=== PATIENT | female | born 2000 | race African-American/Black ===

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

== ENCOUNTER 2018-08-31 20:04 | Emergency (ER) | payer BC, MEDICAID ==
[~2018-08-31] VITALS: Ht 160 cm; Wt 93.0 kg
[~2018-08-31 20:04] MED LIST changes: +TRAMADOL HCL50 MG ORAL
[2018-08-31] MEDS ORDERED: NKM (20:15)
[2018-08-31 20:27] VITALS: BP 111/74
[2018-08-31] MEDS ORDERED: Tylenol #3 tab (300mg/30mg) ORAL ONE (20:45)
[2018-08-31] MEDS ORDERED: RANITIDINE HCL150 MG ORAL (20:58)
[2018-08-31] MEDS ORDERED: FIORICET1 EA ORAL (20:58)
[2018-08-31] MEDS ORDERED: ONDANSETRON ODT4 MG BC (20:58)
[2018-08-31 21:07] VITALS: BP 111/74
--- NOTE | 2018-09-03 06:58 | Emergency Room Report ---
History of Present Illness General Chief Complaint: Headache Source: Patient Present Illness HPI 18-year-old female presents ED for evaluation. States that last night she ate some food that made her sick. States that yesterday she vomited once and she vomited earlier today. Denies any abdominal pain. Denies any diarrhea. States that she has a headache because of the vomiting. Throbbing, 8 out of 10 , nonradiating. States she has migraines. Denies photophobia or blurry vision. Denies neck stiffness. Denies recent travel or recent antibiotic use. No other aggravating relieving factors. Denies any other associated symptoms Allergies: Coded Allergies: No Known Allergies (Unverified , 04/04/14) Patient History Past Medical History: HTN, asthma Past Surgical History: none Pertinent Family History: none Social History: Denies: smoking, alcohol use, drug use Last Menstrual Period: 07/2018 Now: No : 0 Para: 0 Immunizations: UTD Reviewed Nursing Documentation: PMH: Agreed; PSxH: Agreed Nursing Documentation-PMH Past Medical History: No History, Except For Hx Cardiac Problems: Yes - PAC's Hx Hypertension: Yes Hx Asthma: Yes Review of Systems All Other Systems: negative except mentioned in HPI Physical Exam Vital Signs Date Time Temp Pulse Resp B/P (MAP) Pulse Ox O2 Delivery O2 Flow Rate FiO2 08/31/18 20:12 98.4 103 16 111/74 97 Room Air Sp02 EP Interpretation: reviewed, normal General Appearance: no apparent distress, alert, GCS 15, non-toxic Head: normocephalic, atraumatic Eyes: bilateral eye normal inspection, bilateral eye PERRL ENT: hearing grossly normal, normal pharynx, no angioedema, normal voice Neck: full range of motion, supple/symm/no masses Respiratory: chest non-tender, lungs clear, normal breath sounds, speaking full sentences Cardiovascular #1: regular rate, rhythm, no edema Cardiovascular #2: 2+ carotid (R), 2+ carotid (L), 2+ radial (R), 2+ radial (L) , 2+ dorsalis pedis (R), 2+ dorsalis pedis (L) Gastrointestinal: normal bowel sounds, non tender, soft, non-distended, no guarding, no rebound Rectal: deferred Genitourinary: normal inspection, no CVA tenderness Musculoskeletal: back normal, gait/station normal, normal range of motion, non- tender Neurologic: alert, oriented x3, responsive, commodity trader III-XII nml as tested, motor strength/tone normal, sensory intact, speech normal Psychiatric: judgement/insight normal, memory normal, mood/affect normal, no suicidal/homicidal ideation Reflexes: 3+ bicep (R), 3+ bicep (L), 3+ tricep (R), 3+ tricep (L), 3+ knee (R) , 3+ knee (L) Skin: normal color, no rash, warm/dry, well hydrated Lymphatic: no adenopathy Medical Decision Making Diagnostic Impression: Primary Impression: Gastritis Qualified Codes: K29.00 - Acute gastritis without bleeding Additional Impression: Headache Qualified Codes: R51 - Headache ER Course Hospital Course 18 yo F presents to ED c/o nausea and vomiting, headache differential diagnosis: gastritis, SBO, cholecystits Clinical course Patient placed on stretcher. On office professional. After initial history, exam reveals female in no acute distress. Abdomen is soft. No guarding or rebound. Mucous membranes moist. There is no nuchal rigidity. Extraocular movements intact. Cranial nerves II through XII grossly intact. Discussed findings with patient. I do not believe patient requires IV hydration at this time. Given ODT Zofran and Tylenol and Reglan for her headache I asked patient if she has told her PMD about her headaches. She states "not yet". I asked her then if she has been officially diagnosed with migraines. Patient states "not yet". I explained to patient we cannot call this a migraine without an official diagnosis. Patient is to see her PMD and get neurology follow-up as outpatient On reassessment headache improved. Safe for discharge with close outpatient follow-up I feel this is a highly complex case requiring extensive working including EKG/ Rhythm strip, Xray/CT/US, Blood/urine lab work, repeat exams while in ED, and administration of strong opiates/narcotics for pain control, admission to hospital or close patient follow up. Diagnosis - gastritis, headache Stable and discharged to home with prescriptions for zofran, zantac, fioricet. Followup with PMD. Return to ED if symptoms recur or worsen Last Vital Signs Date Time Temp Pulse Resp B/P (MAP) Pulse Ox O2 Delivery O2 Flow Rate FiO2 08/31/18 21:07 98.4 87 16 111/74 97 Room Air Status: improved Disposition: HOME, SELF-CARE Condition: Stable Scripts Acetamin/Butalbital/Caffeine* (FIORICET*) 1 Ea Tab 1 TAB ORAL Q6H, #15 TAB 0 Refills Prov: Jaime Crabtree MD 08/31/18 Ondansetron Odt* (ZOFRAN ODT*) 4 Mg Tab.rapdis 4 MG BC EVERY 6 HOURS PRN for Nausea & Vomiting, #10 TAB 0 Refills Prov: Jaime Crabtree MD 08/31/18 Ranitidine Hcl* (ZANTAC*) 150 Mg Tablet 150 MG ORAL TWICE A DAY, #30 TAB Prov: Jaime Crabtree MD 08/31/18 Patient Instructions: Migraine Headache Jaime Crabtree MD Sep 03, 2018 06:58
== END 2018-08-31 21:09 | disposition home or self-care (01) ==
LOC: EMR 20:48
DX: K29.70 Gastritis, unspecified, without bleeding (principal); R51 Headache; I10 Essential (primary) hypertension; J45.909 Unspecified asthma, uncomplicated
CPT/HCPCS: 99282

== ENCOUNTER 2018-11-05 10:45 | Emergency (ER) | payer BC, MEDICAID ==
[~2018-11-05] VITALS: Ht 160 cm; Wt 89.8 kg
[~2018-11-05 10:45] MED LIST changes: +FIORICET1 EA ORAL; +NKM; +ONDANSETRON ODT4 MG BC; +RANITIDINE HCL150 MG ORAL
[2018-11-05 10:49] VITALS: BP 119/79
--- NOTE | 2018-11-05 10:49 | NUR ---
ED Nurse Note: PT. AAOX4. AMBULATORY. CAME IN TO ER DUE TO MIGRAINE SINCE MONDAY. DENIES N/V. NO S/S OF ACUTE DISTRESS NOTED AT THIS TIME
--- NOTE | 2018-11-05 11:13 | Emergency Room Report ---
History of Present Illness General Chief Complaint: Headache Source: Patient Present Illness HPI Patient presents with a headache that's been intermittent since Monday. She' s had trouble sleeping because of the headache. She's tried Tylenol which works for a short period of time but when it wears off she has the headache returned. It's frontal, throbbing, nonradiating. She took an Uber to come today. She rates the pain 10/10, frontal, pulsing. The patient states that she's been having headaches for the last 2 years. She' s never seen a private physician or neurologist to get this evaluated. She calls them migraines. She denies any aura for this episode. There is no nausea or vomiting. She denies any fevers, blood thinners, head trauma, numbness or weakness. She's not taking control. The patient states she is under more stress recently. This is been happening for the last 2 months. She's having difficulty sleeping. She denies suicidal ideation. HTN on atenolol. Asthma - no wheezes - on Albuterol Allergies: Coded Allergies: No Known Allergies (Unverified , 04/04/14) Patient History Past Medical History: see triage record Social History: Denies: smoking Social History Narrative security Now: No Reviewed Nursing Documentation: PMH: Agreed; PSxH: Agreed Nursing Documentation-PMH Hx Cardiac Problems: Yes - PAC's Hx Hypertension: Yes Hx Asthma: Yes Review of Systems All Other Systems: negative except mentioned in HPI Physical Exam Vital Signs Date Time Temp Pulse Resp B/P (MAP) Pulse Ox O2 Delivery O2 Flow Rate FiO2 11/05/18 10:49 98.2 88 16 119/79 94 Room Air Sp02 EP Interpretation: reviewed, normal General Appearance: well appearing, no apparent distress Head: normocephalic, atraumatic Eyes: bilateral eye normal inspection, bilateral eye PERRL, bilateral eye EOMI ENT: hearing grossly normal, normal voice, moist mucus membranes Neck: full range of motion, supple Respiratory: no respiratory distress, speaking full sentences Cardiovascular #1: regular rate, rhythm Cardiovascular #2: 2+ radial (R) Gastrointestinal: normal inspection, normal bowel sounds, non tender, overweight Musculoskeletal: back normal, gait/station normal, normal range of motion, no calf tenderness Neurologic: alert, oriented x3, ocular pathologist III-XII nml as tested, motor strength/tone normal, DTRs symmetric, sensory intact, cerebellar normal, normal gait, speech normal Psychiatric: mood/affect normal Skin: no rash Medical Decision Making Diagnostic Impression: Primary Impression: Cephalgia Qualified Codes: G44.209 - Tension-type headache, unspecified, not intractable Additional Impression: Stress ER Course Patient presents with headache without red flag symptoms or findings. Differential includes migraine, tension, stress amongst others. Blood pressure is well controlled. There is no infectious etiology apparent. No imaging or studies or blood work needs to be done. The patient does not want a shot. She' ll be given Tylenol and Motrin. The patient was told that she needs to follow-up and get evaluated by a physician and also I suggested and neurology consultation. Patient stable for outpatient observation and treatment Last Vital Signs Date Time Temp Pulse Resp B/P (MAP) Pulse Ox O2 Delivery O2 Flow Rate FiO2 11/05/18 11:22 98.6 78 16 122/68 96 Room Air Status: improved Disposition: HOME, SELF-CARE Condition: Improved Scripts Ibuprofen* (MOTRIN*) 600 Mg Tablet 600 MG ORAL Q6H PRN for For Pain, #20 TAB Prov: Isaac Coates MD 11/05/18 Acetamin/Butalbital/Caffeine* (FIORICET*) 1 Ea Tab 1 TAB ORAL Q6H PRN for headache, #10 TAB 0 Refills Prov: Isaac Coates MD 11/05/18 Isaac Coates MD Nov 05, 2018 11:13
[2018-11-05] MEDS ORDERED: IBUPROFEN600 MG ORAL (11:15)
[2018-11-05] MEDS ORDERED: FIORICET1 EA ORAL (11:15)
[2018-11-05 11:22] VITALS: BP 122/68
== END 2018-11-05 11:30 | disposition home or self-care (01) ==
LOC: EMR 11:10
DX: G44.209 Tension-type headache, unspecified, not intractable (principal); F43.9 Reaction to severe stress, unspecified; I10 Essential (primary) hypertension; J45.909 Unspecified asthma, uncomplicated; Z79.51 Long term (current) use of inhaled steroids
CPT/HCPCS: 99282

== ENCOUNTER 2019-06-10 17:32 | Emergency (ER) | payer BC, MEDICAID ==
[~2019-06-10] VITALS: Ht 162.6 cm; Wt 89.8 kg
[2019-06-10 18:15] VITALS: BP 125/80
--- NOTE | 2019-06-10 18:16 | Emergency Room Report ---
History of Present Illness General Chief Complaint: Earache Source: Patient Present Illness HPI 19 YO Female presents to the ED c/o 02/04 in severity left ear pain since yesterday. Denies ear discharge she reports recent upper respiratory infection. Patient is requesting testing as she states she recently had unprotected intercourse and she is not on control. She denies nausea , vomiting, fevers, chills, neck pain/stiffness, swollen tender lymph nodes, abdominal pain or vaginal discharge. Patient denies suspicion of STI. She denies cough, CP, SOB, dizziness, ringing in the ears or changes to her hearing ability. Allergies: Coded Allergies: No Known Allergies (Unverified , 04/04/14) Patient History Past Medical History: see triage record Past Surgical History: none Pertinent Family History: none Last Menstrual Period: unable to remember Now: No Reviewed Nursing Documentation: PMH: Agreed; PSxH: Agreed Nursing Documentation-PMH Past Medical History: No History, Except For Hx Cardiac Problems: Yes - PAC's Hx Hypertension: Yes Hx Asthma: Yes Review of Systems All Other Systems: negative except mentioned in HPI Physical Exam Vital Signs Date Time Temp Pulse Resp B/P (MAP) Pulse Ox O2 Delivery O2 Flow Rate FiO2 06/10/19 17:36 98.2 93 17 125/80 (95) 97 Room Air Sp02 EP Interpretation: reviewed, normal General Appearance: no apparent distress, alert, GCS 15, non-toxic Head: normocephalic, atraumatic Eyes: bilateral eye normal inspection, bilateral eye PERRL ENT: hearing grossly normal, normal pharynx, normal voice, nasal congestion, other - Left ear canal is macerated, some external ear tenderness to palpation, creamy white d/c noted in the right ear canal. the TM is WNL. Neck: full range of motion, no meningismus Respiratory: lungs clear, normal breath sounds, speaking full sentences Cardiovascular #1: regular rate, rhythm Musculoskeletal: gait/station normal, normal range of motion, non-tender Neurologic: alert, oriented x3, responsive, motor strength/tone normal, sensory intact, speech normal, grossly normal Psychiatric: judgement/insight normal Skin: no rash Lymphatic: no adenopathy Medical Decision Making PA Attestation Dr. Gongora Is my supervising Physician whom patient management has been discussed with. Diagnostic Impression: Primary Impression: Otitis externa of left ear Qualified Codes: H60.502 - Unspecified acute noninfective otitis externa, left ear ER Course 19 YO Female presents to the ED c/o 02/04 in severity left ear pain since yesterday. Denies ear discharge she reports recent upper respiratory infection. Patient is requesting testing as she states she recently had unprotected intercourse and she is not on control. She denies nausea , vomiting, fevers, chills, neck pain/stiffness, swollen tender lymph nodes, abdominal pain or vaginal discharge. Patient denies suspicion of STI. She denies cough, CP, SOB, dizziness, ringing in the ears or changes to her hearing ability. Ddx considered but are not limited to OM, OE, mastoiditis, TM perforation, FB, shingles just to name a few. Vital signs: are WNL, pt. is afebrile H&PE are most consistent with otitis Externa ORDERS: - Urine Hcg: Negative -OTOSCOPY: Left ear canal is macerated, some external ear tenderness to palpation, creamy white d/c noted in the right ear canal. the TM is WNL. ED INTERVENTIONS: None required at this time. DISCHARGE: At this time pt. is stable for d/c to home. With PO ABX. Will provide printed patient care instructions, and any necessary prescriptions. Care plan and follow up instructions have been discussed with the patient prior to discharge. Labs Test 06/10/19 17:45 Urine HCG, Qualitative Negative (NEGATIVE) Last Vital Signs Date Time Temp Pulse Resp B/P (MAP) Pulse Ox O2 Delivery O2 Flow Rate FiO2 06/10/19 17:36 98.2 93 17 125/80 (95) 97 Room Air Disposition: HOME, SELF-CARE Condition: Stable Scripts Ciprofloxacin Hcl/Dexameth (CIPRODEX OTIC SUSPENSION) 7.5 Ml Drops.susp 4 DROP LEFT EAR QID, #7.5 ML Prov: Bettina Rowan 06/10/19 Patient Instructions: Otitis Externa, [id number] Additional Instructions: Take medications as directed. Follow up with a Primary Care Provider in 3-5 days, even if your symptoms have resolved. --Please review list of primary care clinics, if you do not already have a primary care provider Return sooner to ED if new symptoms occur, or current symptoms become worse. - Please note that this Emergency Department Report was dictated using Fromographymachine try out setter technology software, occasionally this can lead to erroneous entry secondary to interpretation by the dictation equipment. Bettina Rowan Jun 10, 2019 18:16
[2019-06-10] MEDS ORDERED: CIPRODEX OTIC7.5 M1 LEFT EAR (18:18)
--- NOTE | 2019-06-10 18:18 | NUR ---
ED Nurse Note:urine sent to labs
--- NOTE | 2019-06-10 18:20 | NUR ---
ER DISCHARGE NOTE: Patient is cleared to be discharged per ERMD, pt is aox4, on room air, with stable vital signs. pt was given dc and prescription instructions, pt was able to verbalize understanding, pt is able to ambulate with steady gait. pt took all belongings.
[2019-06-10 18:29] VITALS: BP 125/80
== END 2019-06-10 18:36 | disposition home or self-care (01) ==
LOC: EMR 17:59
DX: H60.502 Unspecified acute noninfective otitis externa, left ear (principal); I10 Essential (primary) hypertension; J45.909 Unspecified asthma, uncomplicated; Z32.02 Encounter for pregnancy test, result negative
CPT/HCPCS: 81025; 99282

== ENCOUNTER 2020-07-06 05:27 | Emergency (ER) | payer BC, MEDICAID ==
[~2020-07-06] VITALS: Ht 160 cm; Wt 86.2 kg
[~2020-07-06 05:27] MED LIST changes: +CIPRODEX OTIC7.5 M1 LEFT EAR
--- NOTE | 2020-07-06 05:40 | NUR ---
ED Nurse Note: Recieved pt walk in from home eith c/o "I cant get my contacts out", pt is new contact lens wearer, brought on internet and never shown proper insertion, pt states its irritating, denies pain or any other s/s. or complaints. no visual changes or s/s of infection.
--- NOTE | 2020-07-06 05:50 | Emergency Room Report ---
History of Present Illness General Chief Complaint: Eye Problems Source: Patient Present Illness HPI Is a 20-year-old female with no past medical history. She presents with chief complaint of unable to get her contacts out. She just had new daily wear contacts place less than 24 hours ago. When she got home she could not get them out. She has long nails. Now is irritated. No fever chills but no nausea no vomiting. No drainage. No redness. Nothing made it better. Nothing made it worse. Allergies: Coded Allergies: No Known Allergies (Unverified , 04/04/14) COVID-19 Screening Contact w/high risk pt: No Experienced COVID-19 symptoms?: No COVID-19 Testing performed [employer]IC: No Patient History Past Medical History: see triage record, old chart reviewed Past Surgical History: none Pertinent Family History: none Social History: Denies: smoking Last Menstrual Period: 05/2020 Now: No Immunizations: other Reviewed Nursing Documentation: PMH: Agreed; PSxH: Agreed Nursing Documentation-PMH Hx Cardiac Problems: Yes - PAC's Hx Hypertension: Yes Hx Asthma: Yes Review of Systems Eye: Denies: eye pain, blurred vision ENT: Denies: ear pain, nose congestion, throat swelling Respiratory: Denies: cough, shortness of breath Cardiovascular: Denies: chest pain, palpitations Gastrointestinal: Denies: abdominal pain, diarrhea, nausea, vomiting Musculoskeletal: Denies: back pain, joint pain Skin: Denies: rash Neurological: Denies: headache, numbness Endocrine: Denies: increased thirst, increased urine Hematologic/Lymphatic: Denies: easy bruising All Other Systems: negative except mentioned in HPI Physical Exam Vital Signs Date Time Temp Pulse Resp B/P (MAP) Pulse Ox O2 Delivery O2 Flow Rate FiO2 07/06/20 05:30 98.4 78 16 102/54 (70) 98 Room Air Vitals normal Sp02 EP Interpretation: reviewed, normal General Appearance: well appearing, no apparent distress, alert Head: normocephalic, atraumatic Eyes: bilateral eye PERRL, bilateral eye EOMI, bilateral eye other - Bilateral contacts intact. No redness or trauma. ENT: hearing grossly normal, normal pharynx Neck: full range of motion, supple, no meningismus Respiratory: chest non-tender, lungs clear, normal breath sounds Cardiovascular #1: regular rate, rhythm, no murmur Gastrointestinal: normal bowel sounds, non tender, no mass, no organomegaly, no bruit, non-distended Musculoskeletal: back normal, normal range of motion, gait/station normal Psychiatric: mood/affect normal Procedures Additional Procedure Procedure Narrative Procedure: Foreign body removal Indication: Foreign body (contact lens) bilateral eyes. Description: I put a couple drops of procaine in each eye. Using my finger I remove the contact lens without any problem. No trauma. Patient tolerated surgery without any problem. Medical Decision Making Diagnostic Impression: Primary Impression: Contact lens stuck ER Course This patient presents with contact lenses stuck in her eyes. No corneal abrasion or ulceration. No infection. Last Vital Signs Date Time Temp Pulse Resp B/P (MAP) Pulse Ox O2 Delivery O2 Flow Rate FiO2 07/06/20 05:30 98.4 78 16 102/54 (70) 98 Room Air Status: improved Disposition: HOME, SELF-CARE Condition: Stable Additional Instructions: Wear your glasses. Follow-up with your doctor as needed. Return if worse. Emre Diane MD Jul 06, 2020 05:50
[2020-07-06 06:00] VITALS: BP 102/54
== END 2020-07-06 06:00 | disposition home or self-care (01) ==
LOC: EMR 05:49
DX: T15.92XA Foreign body on external eye, part unspecified, left eye, initial encounter (principal); T15.91XA Foreign body on external eye, part unspecified, right eye, initial encounter; I10 Essential (primary) hypertension; J45.909 Unspecified asthma, uncomplicated; X58.XXXA Exposure to other specified factors, initial encounter
CPT/HCPCS: 99282

== ENCOUNTER 2020-07-27 16:27 | Emergency (ER) | payer BC, MEDICAID ==
[~2020-07-27] VITALS: Ht 160 cm; Wt 89.8 kg
--- NOTE | 2020-07-27 16:39 | NUR ---
ED Nurse Note: pt presents to ED c/o MORALES onset this AM. pt states that she has had this happen in the past and usually takes BC powder for it but has not today. she states that light makes the pain worse, describes the pain as "throbbing," also c/o mild dizziness
[2020-07-27 16:45] VITALS: BP 124/80
[2020-07-27] MEDS ORDERED: TYLENOL EXTRA500 MG ORAL (16:57)
--- NOTE | 2020-07-27 16:57 | Emergency Room Report ---
History of Present Illness General Chief Complaint: Headache Present Illness HPI 20-year-old female with no notable past medical history here complaining of right-sided frontal headache that started this morning after she excellently hit her head into the wall next to her as she was waking up. Patient denies any fall or injury, denies loss of consciousness, denies nausea or vomiting, blurry vision, dizziness. Reports that she did not take any pain medication as she did not know whether she should or not before coming to the emergency room. Patient has steady gait and denies any abdominal symptoms. Denies any alcohol intake or drug use prior to the head injury. Patient ports that she had not fully gotten off of bed that she accidentally bumped her right side of head trouble next to her. No bleeding noted, no signs of trauma noted. Denies . Allergies: Coded Allergies: No Known Allergies (Unverified , 04/04/14) COVID-19 Screening Contact w/high risk pt: No Experienced COVID-19 symptoms?: No COVID-19 Testing performed HOT MAN: No Patient History Past Medical History: see triage record Past Surgical History: none Pertinent Family History: none Last Menstrual Period: 07/07/2020 Now: No Immunizations: UTD Reviewed Nursing Documentation: PMH: Agreed; PSxH: Agreed Nursing Documentation-PMH Hx Cardiac Problems: Yes - PAC's Hx Hypertension: Yes Hx Asthma: Yes Review of Systems All Other Systems: negative except mentioned in HPI Physical Exam Vital Signs Date Time Temp Pulse Resp B/P (MAP) Pulse Ox O2 Delivery O2 Flow Rate FiO2 07/27/20 16:32 98.4 100 20 124/80 (95) 95 Room Air Sp02 EP Interpretation: reviewed, normal General Appearance: no apparent distress, alert, GCS 15, non-toxic Head: normocephalic, atraumatic Eyes: bilateral eye normal inspection, bilateral eye PERRL ENT: hearing grossly normal, no angioedema, normal voice Neck: full range of motion, supple/symm/no masses Respiratory: no respiratory distress, no retraction, no accessory muscle use, speaking full sentences Cardiovascular #1: regular rate, rhythm, no edema Cardiovascular #2: 2+ radial (R), 2+ radial (L) Gastrointestinal: non-distended Musculoskeletal: back normal, gait/station normal Neurologic: alert, motor strength/tone normal, oriented x3, sensory intact, responsive, speech normal Psychiatric: judgement/insight normal, memory normal, mood/affect normal, no suicidal/homicidal ideation Skin: no rash Lymphatic: no adenopathy Medical Decision Making PA Attestation All diagnoses and treatment plans were reviewed and discussed with my supervising physician Dr. Davis Diagnostic Impression: Primary Impression: Head contusion ER Course 20-year-old female with no notable past medical history here complaining of right-sided frontal headache that started this morning after she excellently hit her head into the wall next to her as she was waking up. Patient denies any fall or injury, denies loss of consciousness, denies nausea or vomiting, blurry vision, dizziness. Reports that she did not take any pain medication as she did not know whether she should or not before coming to the emergency room. Patient has steady gait and denies any abdominal symptoms. Denies any alcohol intake or drug use prior to the head injury. Patient ports that she had not fully gotten off of bed that she accidentally bumped her right side of head trouble next to her. No bleeding noted, no signs of trauma noted. Denies . Ddx considered but are not limited to: Migraine headache with aura, migraine headache without aura, tension headache, cluster headache, TBI, subarachnoid hemorrhage Vital signs: are WNL, pt. is afebrile H&PE are most consistent with: Head contusion At this time the head CT scan is recommended as patient did not have any loss of consciousness, it appears to be atraumatic, no signs of dizziness, blurry vision, and unsteady gait noted. Also patient did not hit her head forcefully it was just a slight contusion. However emergency ORDERS: Tylenol ER intervention: Tylenol DISCHARGE: At this time pt. is stable for d/c to home. Will provide printed patient care instructions, and any necessary prescriptions. Care plan and follow up instructions have been discussed with the patient prior to discharge. Last Vital Signs Date Time Temp Pulse Resp B/P (MAP) Pulse Ox O2 Delivery O2 Flow Rate FiO2 07/27/20 16:45 98.4 20 124/80 95 Room Air 07/27/20 16:32 100 Disposition: HOME, SELF-CARE Condition: Stable Scripts Acetaminophen* (TYLENOL EXTRA STRENGTH*) 500 Mg Tablet 500 MG ORAL Q8H PRN for Prn Headache/Temp > 101, #30 TAB 0 Refills Prov: John Goldstein 07/27/20 Patient Instructions: Facial or Scalp Contusion, [id number] Additional Instructions: Take medication as directed, increase oral hydration, follow primary care provid er, if worsening symptoms return to the emergency room John Goldstein Jul 27, 2020 16:56
[2020-07-27 17:00] VITALS: BP 124/80
--- NOTE | 2020-07-27 17:00 | NUR ---
ER DISCHARGE NOTE: Patient is cleared to be discharged per ERMD, pt is aox4, on room air, with stable vital signs. pt was given dc and prescription instructions, pt was able to verbalize understanding, pt id band removed without complications. pt is able to ambulate with steady gait. pt took all belongings.
== END 2020-07-27 17:00 | disposition home or self-care (01) ==
LOC: EMR 17:00
DX: S00.93XA Contusion of unspecified part of head, initial encounter (principal); W22.01XA Walked into wall, initial encounter; Y92.9 Unspecified place or not applicable; I10 Essential (primary) hypertension; J45.909 Unspecified asthma, uncomplicated
CPT/HCPCS: 99282